=== PATIENT | female | born 1965 | race Two or more races ===

== ENCOUNTER 2024-09-17 13:53 | Emergency (ER) | payer MEDICARE, MEDICAID, SELFPAY ==
[2024-09-17 13:54] VITALS: BMI 38.7
--- NOTE | 2024-09-17 14:18 | PD.EDRME ---
Rapid Medical Screening Exam RME Arrival date/time: 09/17/24 13:53 59-year-old female dialysis patient presents emergency department complaint of nosebleed ongoing x 2 hours Chief Complaint: Epistaxis/Nasal Foreign Body
[2024-09-17 14:20] VITALS: BP 179/97; PULSE 95; RESP 20; TEMP 36.8; O2SAT 97
[2024-09-17 14:40] LABS: Basophils # (Auto) 0.1 Thou/mm3 (0.0-0.2); Basophils % (Auto) 1 % (0-2.5); Eosinophils # (Auto) 0.6 Thou/mm3 (0.0-0.5); Eosinophils % (Auto) 6 % (0-10); Hematocrit 28.5 % (36.0-46.0); Hemoglobin 9.3 g/dL (12.0-16.0); Immature Granulocytes % (Auto) 2 % (0-0); Immature Granulocytes Auto 0.13 Thou/mm3 (0.00-0.00); Lymphocytes # (Auto) 1.2 Thou/mm3 (1.0-4.8); Lymphocytes % (Auto) 14 % (10-50); Mean Corpuscular HGB Conc 32.6 g/dl (31.0-37.0); Mean Corpuscular Hemoglobin 29.2 pg (25.0-35.0); Mean Corpuscular Volume 90 fL (80-100); Monocytes # (Auto) 0.6 Thou/mm3 (0.0-0.8); Monocytes % (Auto) 6 % (0-12); Neutrophils # (Auto) 6.3 Thou/mm3 (1.8-7.7); Neutrophils % (Auto) 72 % (37-80); Nucleated Red Blood Cell # 0.05 Thou/mm3 (0.00-0.00); Nucleated Red Blood Cell % 1 /100 WBC (0); Platelet Count 285 Thou/mm3 (140-440); RDW Standard Deviation 49.8 fL (36.4-46.3); Red Blood Count 3.18 Miln/mm3 (4.00-5.20); White Blood Count 8.8 Thou/mm3 (3.6-11.0)
--- NOTE | 2024-09-17 14:47 | XR_ITS ---
Examination: CT brain head without contrast. 2-D sagittal coronal reconstructions Date and time of exam:September 17, 2024 at 1540 hours INDICATIONS: High blood pressure today with headaches and nosebleed beginning 3 hours ago COMPARISON: March 06, 2022 CTDI: vol (mGy):45.6 DLP: (mGycm):912 Technique: Multiple CT axial sections of the brain have been obtained, 5 mm slice thickness. Contrast has not been administered. 2-D sagittal, coronal reconstructions have been obtained Low dose protocols were performed. One or more of the following dose reduction techniques were used; automated exposure control, adjustment of the mA and/or KV according to patient size, use of iterative reconstruction technique. Findings: No significant ventricular enlargement. Intra-axial or extra-axial hemorrhage density is not seen Cerebellar tonsils project exclude 4 mm below the foramen magnum. No mass effect or midline shift Basal cisterns are not remarkable. Fourth ventricle is midline. Cranial vault intact. Significant maxillary sinus disease Prominent hypertrophy left inferior nasal turbinate Deviation nasal septum to the right 8 mm Impression: Negative for acute hemorrhage, mass effect or midline shift Arnold-Chiari malformation type I, recommend elective brain MRI follow-up pre and postcontrast Significant maxillary sinus disease Prominent hypertrophy left inferior nasal turbinate Prominent deviation nasal septum to the right
--- NOTE | 2024-09-17 14:53 | EDNOTE_ITS ---
ED Epistaxis RME/HPI General Chief complaint: Epistaxis/Nasal Foreign Body Stated complaint: NOSE BLEEDING ON AND OFF SINCE YESTERDAY Time Seen by Provider: 09/17/24 14:38 Arrival date/time: 09/17/24 13:53 RME / HPI RME / HPI Narrative: 09/17/24 13:53 59-year-old female dialysis patient presents emergency department complaint of nosebleed ongoing x 2 hours This section includes all my notes and documentations, including HPI, PE, and ED course.? Shine Whitley MD HPI: 59 year old female with history of hypertension, diabetes, ESRD on HD presents to the ED for evaluation of severe nose bleed beginning 3 hours prior to ar rival. Reports bleeding only from the right nostril and began spontaneously. Additionally complains of severe headache. Denies blowing her nose, trauma, or congestion. Denies use of blood thinners. No other complaints. ROS: All negative except as documented in HPI. Physical Exam: General:? Alert and oriented.??No acute distress. Severe high BP noted. Eyes:? Conjunctivae and lids clear.?? ENT:? No nasal congestion.??No active bleeding. Pharynx normal. TM normal bilaterally. Neck:? Supple.?? Heart: RRR. Lungs:? No respiratory distress.??Good air movement with no rhonchi or wheezing or rails. Skin:? Warm and dry.?? Neuro:? Alert and oriented X 3.?? I reviewed all diagnostic test results. My review of the head CT report is no acute findings, except sinusitis. Blood tests unremarkable except elevated BUN/Cr from ESRD. At this point, diagnoses include?hypertension, nose bleed, sinusitis. Treatment here included?clonidine and metoprolol and two Tylenol #3. Significant improvement noted. Increase BP meds and recommended outpatient care. Based on my best medical judgment, made decision no further evaluation or treatment indicated at this time.? Patient understands and agrees to the discharge instructions customized and printed, see below. Discharge instructions from Dr. Whitley: 1. After extensive evaluation, there is no life-threatening condition.? Such as stroke or brain tumor or heart attack. 2. Your nosebleed is due to severely high BP (sinus infection is a factor too) which ruptures tiny blood vessels. 3. Take clonidine 0.2 mg and metoprolol ER 50 mg every morning and every night. You will live longer with lower BP and slower heart rate. And Augmentin for sinus infection. And Tylenol with codeine for severe headache. 4. See a private doctor on 09/20/2024 for recheck and further care. Ask to review all test results and official radiology reports, to make sure you receive all necessary follow-ups and monitoring. Ask for help until you are completely better. 5. Seek immediate medical care with worsening or with any concerns.?? Shine Whitley MD Related Data Home Medications ?Medication ?Instructions ?Recorded ?Confirmed sodium bicarbonate 650 mg tablet 650 mg PO BID ##0 04/23/16 08/26/18 cholecalciferol (vitamin D3) 50 2,000 unit PO QDAY 03/13/18 08/26/18 mcg (2,000 unit) capsule (Vitamin D3) clonidine HCl 0.3 mg tablet 1 tab PO BID 03/13/18 08/26/18 cyanocobalamin (vitamin B-12) 1,000 mcg PO QDAY 03/13/18 08/26/18 1,000 mcg tablet (Vitamin B-12) cyclobenzaprine 10 mg tablet 10 mg PO TID PRN Muscle Pain 03/13/18 08/26/18 ferrous sulfate 325 mg (65 mg 325 mg PO TID 03/13/18 08/26/18 iron) tablet losartan 100 mg tablet 100 mg PO QDAY 03/13/18 08/26/18 pioglitazone 30 mg tablet 30 mg PO QDAY 03/13/18 08/26/18 insulin glargine 100 unit/mL (3 50 unit subcut QDAY 08/25/18 08/26/18 mL) subcutaneous pen (Basaglar KwikPen U-100 Insulin) Previous Rx's ?Medication ?Instructions ?Recorded acetaminophen 300 mg-codeine 30 mg 2 tab PO TID PRN pain #20 tabs 09/17/24 tablet amoxicillin 875 mg-potassium 1 tab PO BID #20 tabs 09/17/24 clavulanate 125 mg tablet clonidine HCl 0.2 mg tablet 0.2 mg PO BID #60 tabs 09/17/24 metoprolol succinate 50 mg 50 mg PO BID #60 tabs 09/17/24 tablet,extended release 24 hr Allergies Allergy/AdvReac Type Severity Reaction Status Date / Time simvastatin AdvReac Severe Cramping Verified 09/17/24 13:55 of the Muscles Review of Systems Review of Systems Systems Reviewed: All systems reviewed, normal except as documented Past Medical History Past Medical History NEUROLOGIC: Positive Migraine CARDIAC: Positive Cardiac Disorders and Hypertension (TAKES MED) RESPIRATORY: Positive Sleep Apnea (HAS CPAP) GENITOURINARY: Positive Genitourinary Disorders and Renal Disease (ONE KIDNEY FUNCTION BEING OBSERVE) REPRODUCTIVE: Positive Previous Pregnancies (X4) ENT: Positive Cataracts (SUDHIR) ENDOCRINE: Positive Endocrine Disorders and Diabetes Mellitus Type 2 (TAKES MEDS) OTHER HISTORY: Positive Falls (07/26 ER VISIT) Family History FAMILY HISTORY: Positive Family Psychiatric Problems (MOTHER (DEPRESSION)), Family Cardiac Disorders (MOTHER,BROTHER,SISTER (HTN)), Family Cancer (FATHER (PENILE)) and Family Surgery (MOTHER,FATHER,BROTHER,SISTER) Surgical History SURGICAL: Positive Joint Replacement, Tubal Ligation and Section (X1) Social History SMOKING STATUS: Never smoker ED Exam Narrative Physical exam: As noted in HPI Course Quality Measures none Orders Category Date Time Status CT head/brain wo con Stat Exams 09/17/24 14:47 Completed CBC Stat Lab 09/17/24 14:27 Completed Comprehensive Metabolic Panel Stat Lab 09/17/24 14:18 Completed Partial Thromboplastin Time Stat Lab 09/17/24 14:27 Completed Prothrombin Time with INR Stat Lab 09/17/24 14:27 Completed ACETAMINOPHEN w/COD 300-30 [Tylenol w/Cod #3] Med 09/17/24 16:07 Discontinued 2 tab PO X1 ONE Metoprolol Tartrate [Lopressor] Med 09/17/24 14:48 Discontinued 50 mg PO X1 ONE cloNIDine HCL [Catapres] Med 09/17/24 14:48 Discontinued 0.3 mg PO X1 ONE Vital Signs Vital signs: Vital Signs Temperature 98.3 F 09/17/24 14:20 Pulse Rate 95 09/17/24 14:20 Respiratory Rate 20 09/17/24 14:20 Blood Pressure 179/97 H 09/17/24 14:20 Pulse Oximetry (%) 97 09/17/24 14:20 Oxygen Delivery Method Room Air 09/17/24 14:20 Pulse ox is 97% on room air which is adequate. Epistaxis MDM Narrative MDM Narrative:: Rubi Hughes am scribing for and in the presence of Dr. Whitley. Patient data External records reviewed:: [facility] previous records (I reviewed ED visit on 03/06/2022) Clinical information provided by:: patient Social determinants that could affect healthcare access:: none Patient has the following chronic illnesses:: hypertension, diabetes, ESRD on HD How is presenting disease/condition affected by chronic disease/condition?: exacerbated by Evaluation data The following diagnostics were reviewed and interpreted by me:: lab results and radiology exam(s) Lab and/or radiology exams considered but not ordered:: None Interpretation Summary: Normal diagnostics Medications / Prescriptions Medications or Prescriptions considered but not ordered:: None Medication administrations:: Medication Administration History Discontinued Medications Acetaminophen/Codeine Phosphate (Acetaminophen W/Cod 300-30 Tablet) 2 tab PO X1 ONE Stop: 09/17/24 16:08 Clonidine (Clonidine Hcl 0.1 Mg Tablet) 0.3 mg PO X1 ONE Stop: 09/17/24 14:49 Last Admin: 09/17/24 15:22 Dose: 0.3 mg Documented By: OA Metoprolol Tartrate (Metoprolol Tartrate 25 Mg Tablet) 50 mg PO X1 ONE Stop: 09/17/24 14:49 Last Admin: 09/17/24 16:03 Dose: 50 mg Documented By: OA Patient given clonidine and metropolol and tylenol with codeine Consultations Consultation(s) initiated? (list below): No Diagnosis Epistaxis Differential Diagnosis: nasal bone fracture, anterior epistaxis, posterior epistaxis and other (CVA, brain tumor, severe anemia) Most likely diagnosis given after review of the tests above:: Hypertension Nose bleed Sinusitis Admission Indicated Admission indicated?: not indicated Explain why admission is indicated or not indicated:: Does not meet admission criteria Admission Request Was there a request for admission?: No Disposition Plan Disposition Plan: Discharge Discharge Attestation Discharge Attestation: The patient and all family members were given an opportunity to ask questions and understood the discharge instructions. Discharge instructions specifically effects, indications for sooner follow up or return to the emergency department, and the expected course of current diagnosis. Patient condition: Stable Discharge Plan Plan Patient Disposition: HOME (Self Care) Prescriptions/Referrals Prescriptions/Med Rec: New clonidine HCl 0.2 mg tablet 0.2 mg PO BID Qty: 60 0RF metoprolol succinate 50 mg tablet extended release 24 hr 50 mg PO BID Qty: 60 0RF acetaminophen-codeine 300-30 mg tablet 2 tab PO TID MDD 6 PRN (Reason: pain) Qty: 20 0RF amoxicillin-pot clavulanate 875-125 mg tablet 1 tab PO BID Qty: 20 0RF No Action sodium bicarbonate 650 MG tablet 650 mg PO BID Qty: 0 insulin glargine [Basaglar KwikPen U-100 Insulin] 100 unit/mL (3 mL) Insulin Pen 50 unit SUBCUT QDAY cyclobenzaprine 10 mg Tablet 10 mg PO TID PRN (Reason: Muscle Pain) clonidine HCl 0.3 mg Tablet 1 tab PO BID ferrous sulfate 325 mg (65 mg iron) Tablet 325 mg PO TID pioglitazone 30 mg Tablet 30 mg PO QDAY losartan 100 mg Tablet 100 mg PO QDAY cholecalciferol (vitamin D3) [Vitamin D3] 2,000 unit Capsule 2,000 unit PO QDAY cyanocobalamin (vitamin B-12) [Vitamin B-12] 1,000 mcg Tablet 1,000 mcg PO QDAY Referrals: Erik Gates PA-C [Primary Care Provider] - In 1 week Problem List Clinical Impression: Hypertension, Nosebleed, Sinusitis Patient/Caregiver Discharge Instructions Discharge Activity: activity as tolerated Education Materials: ED Epistaxis (Adult), ED Hypertension, Established, ED Sinusitis (Antibiotic Treatment) Additional Instructions: Discharge instructions from Dr. Whitley: 1. After extensive evaluation, there is no life-threatening condition.? Such as stroke or brain tumor or heart attack. 2. Your nosebleed is due to severely high BP (sinus infection is a factor too) which ruptures tiny blood vessels. 3. Take clonidine 0.2 mg and metoprolol ER 50 mg every morning and every night. You will live longer with lower BP and slower heart rate. And Augmentin for sinus infection. And Tylenol with codeine for severe headache. 4. See a private doctor on 09/20/2024 for recheck and further care. Ask to review all test results and official radiology reports, to make sure you receive all necessary follow-ups and monitoring. Ask for help until you are completely better. 5. Seek immediate medical care with worsening or with any concerns.?? Print Language: [place] Islander Stand Alone Forms: Mary Award Info., Patient Portal Info Letter
[2024-09-17 14:58] LABS: INR 1.2 (0.9-1.3); Prothrombin Time 12.6 Seconds (9.0-12.2)
[2024-09-17 15:21] LABS: Alanine Aminotransferase < 7 U/L (10-49); Albumin, Serum 4.2 gm/dL (3.5-5.0); Albumin/Globulin Ratio 1.3 (1.2-2.2); Alkaline Phosphatase 189 U/L (46-116); Anion Gap 12 (7-16); Aspartate Amino Transferase < 8 U/L (0-34); BUN/Creatinine Ratio 5 Ratio (12-20); Bilirubin,Total < 0.2 mg/dL (0.3-1.2); Blood Urea Nitrogen 56 mg/dL (9-23); Calcium 10.4 mg/dL (8.3-10.6); Calcium (Corrected) 10.4 mg/dL (8.5-10.1); Carbon Dioxide 28.1 mMol/L (20.0-31.0); Chloride 96 mMol/L (98-107); Creatinine (Component) 11.3 mg/dL (0.6-1.3); Estimated Creatinine Clearance 6.2 mL/min (>60); Globulin 3.2 gm/dL (2.3-3.5); Glucose 135 mg/dL (74-106); Osmolality,Calculated 289 (275-295); Potassium 4.3 mMol/L (3.4-5.1); Sodium 136 mMol/L (136-145); Total Protein 7.4 gm/dL (5.7-8.2); eGFR 4 See Note
[2024-09-17 15:22] VITALS: BP 179/97; PULSE 95
[2024-09-17] MEDS: cloNIDine HCL 0.1 MG TABLET 0.3 MG PO (15:22)
[2024-09-17 15:48] VITALS: BP 201/108; PULSE 93; RESP 18; TEMP 36.8; O2SAT 98
[2024-09-17 16:03] VITALS: BP 201/108; PULSE 93
[2024-09-17] MEDS: METOPROLOL TARTRATE 25 MG TABLET 50 MG PO (16:03)
[2024-09-17 17:17] VITALS: BP 153/89
== END 2024-09-17 17:18 | disposition home or self-care (01) ==
PROVIDERS: Nurse Practitioner Primary Care; Emergency Provider Emergency Medicine; PCP Physician Assistant
DX: J32.0 Chronic maxillary sinusitis (principal); I12.0 Hypertensive chronic kidney disease with stage 5 chronic kidney disease or end stage renal disease; E11.22 Type 2 diabetes mellitus with diabetic chronic kidney disease; N18.6 End stage renal disease; Z99.2 Dependence on renal dialysis; Z79.84 Long term (current) use of oral hypoglycemic drugs
CPT/HCPCS: 36415; 70450; 80053; 85025; 85610; 85730; 99284; A9270

== ENCOUNTER 2024-10-21 20:50 | Emergency (ER) | payer MEDICARE, MEDICAID, SELFPAY ==
[2024-10-21 20:51] VITALS: BMI 38.9
[2024-10-21 21:02] VITALS: BP 214/138; BP 234/132; PULSE 103; RESP 20; TEMP 36.9; O2SAT 93
--- NOTE | 2024-10-21 21:23 | PD.EDEPIST ---
ED Epistaxis RME/HPI General Chief complaint: Epistaxis/Nasal Foreign Body Stated complaint: NOSE BLEED X3 HOURS Time Seen by Provider: 10/21/24 21:20 Arrival date/time: 10/21/24 20:50 59F with history of HTN, ESRD, and DM presents to ED with intermittent nosebleed for several hours. Patient denies fall/trauma, dizziness, weakness, AMS, seizures and LOC. Patient is not on a blood thinner. Limitations: no limitations Related Data Home Medications ?Medication ?Instructions ?Recorded ?Confirmed sodium bicarbonate 650 mg tablet 650 mg PO BID ##0 04/23/16 08/26/18 cholecalciferol (vitamin D3) 50 2,000 unit PO QDAY 03/13/18 08/26/18 mcg (2,000 unit) capsule (Vitamin D3) clonidine HCl 0.3 mg tablet 1 tab PO BID 03/13/18 08/26/18 cyanocobalamin (vitamin B-12) 1,000 mcg PO QDAY 03/13/18 08/26/18 1,000 mcg tablet (Vitamin B-12) cyclobenzaprine 10 mg tablet 10 mg PO TID PRN Muscle Pain 03/13/18 08/26/18 ferrous sulfate 325 mg (65 mg 325 mg PO TID 03/13/18 08/26/18 iron) tablet losartan 100 mg tablet 100 mg PO QDAY 03/13/18 08/26/18 pioglitazone 30 mg tablet 30 mg PO QDAY 03/13/18 08/26/18 insulin glargine 100 unit/mL (3 50 unit subcut QDAY 08/25/18 08/26/18 mL) subcutaneous pen (Basaglar KwikPen U-100 Insulin) Previous Rx's ?Medication ?Instructions ?Recorded acetaminophen 300 mg-codeine 30 mg 2 tab PO TID PRN pain #20 tabs 09/17/24 tablet amoxicillin 875 mg-potassium 1 tab PO BID #20 tabs 09/17/24 clavulanate 125 mg tablet clonidine HCl 0.2 mg tablet 0.2 mg PO BID #60 tabs 09/17/24 metoprolol succinate 50 mg 50 mg PO BID #60 tabs 09/17/24 tablet,extended release 24 hr doxycycline hyclate 100 mg tablet 100 mg PO BID 7 days #14 tabs 10/21/24 Allergies Allergy/AdvReac Type Severity Reaction Status Date / Time simvastatin AdvReac Severe Cramping Verified 10/21/24 20:51 of the Muscles Review of Systems Review of Systems Systems Reviewed: All systems reviewed, normal except as documented Constitutional Constitutional: Reports system reviewed and no additional complaints, except as documented, Denies fever(s) and Denies headache(s) ENT Ears, Nose, Mouth, and Throat: Reports as per HPI, Denies disequilibrium, Reports epistaxis and Denies headache(s) Cardiovascular Cardiovascular: Reports system reviewed and no additional complaints, except as documented, Denies chest pain and Denies dyspnea Respiratory Respiratory: Reports system reviewed and no additional complaints, except as documented, Denies cough and Denies dyspnea Gastrointestinal Gastrointestinal: Reports system reviewed and no additional complaints, except as documented, Denies abdominal pain, Denies nausea and Denies vomiting Neurologic Neurologic: Reports system reviewed and no additional complaints, except as documented, Denies confusion, Denies disequilibrium and Denies headache(s) Psychiatric Psychiatric: Denies confusion Past Medical History Past Medical History NEUROLOGIC: Positive Migraine; Negative Neurological Disorders or Seizures CARDIAC: Positive Cardiac Disorders and Hypertension (TAKES MED); Negative Congestive Heart Failure RESPIRATORY: Positive Sleep Apnea (HAS CPAP); Negative Chronic Obstructive Pulmonary Disease (COPD), Asthma, Bronchitis, Emphysema, Pneumonia, Pulmonary Fibrosis, Cystic Fibrosis, Tuberculosis, Pulmonary Embolism or Pulmonary Edema GASTROINTESTINAL: Negative Gastrointestinal Disorders GENITOURINARY: Positive Genitourinary Disorders and Renal Disease (ONE KIDNEY FUNCTION BEING OBSERVE) REPRODUCTIVE: Positive Previous Pregnancies (X4); Negative Breast Cancer or Pelvic Inflammatory Disease MUSCULOSKELETAL: Negative Musculoskeletal Disorders ENT: Positive Cataracts (SUDHIR) ENDOCRINE: Positive Endocrine Disorders and Diabetes Mellitus Type 2 (TAKES MEDS); Negative Diabetes Mellitus Type 1 HEMATOLOGIC: Negative Blood Disorders OTHER HISTORY: Positive Falls (07/26 ER VISIT); Negative Hospitalization, Autoimmune Disease, Shingles, Blood Transfusions, Blood Transfusion Reaction, Anesthesia Reactions, Organ Transplant, Chemotherapy, Radiation Therapy, MRSA, Clostridium Difficile or Breast Cancer Family History FAMILY HISTORY: Positive Family Psychiatric Problems (MOTHER (DEPRESSION)), Family Cardiac Disorders (MOTHER,BROTHER,SISTER (HTN)), Family Cancer (FATHER (PENILE)) and Family Surgery (MOTHER,FATHER,BROTHER,SISTER); Negative Family Respiratory Disorders, Family Gastrointestinal Problems or Family Anesthesia Reaction Surgical History SURGICAL: Positive Joint Replacement, Tubal Ligation and Section (X1); Negative Abdominal Surgery, Nephrectomy, Neurologic Surgery, Brain Shunt, Mastectomy, Lumpectomy, Hysterectomy or Organ Transplant Social History SMOKING STATUS: Never smoker ED Exam General Limitations: Present no limitations General appearance: Present alert and in no apparent distress Head Head exam: Present atraumatic Eye Eye exam: Present normal appearance, PERRL and EOMI ENT ENT exam: Present normal oropharynx and mucous membranes moist Expanded ENT Exam Nasal speculum exam: Right: epistaxis Neck Neck exam: Present normal inspection, full ROM and trachea midline Chest Chest inspection: Present normal inspection and symmetric chest wall rise Respiratory Respiratory exam: Present normal lung sounds bilaterally Cardiovascular Cardiovascular exam: Present regular rate, normal rhythm and normal heart sounds Abdominal Exam Abdominal exam: Present soft and normal bowel sounds Extremities Exam Extremities exam: Present normal inspection and full ROM Back Exam Back exam: Present normal inspection and full ROM Neurological Exam Neurological exam: Present alert, oriented X3 and CN II-XII intact Psychiatric Psychiatric exam: Present normal affect and normal mood Skin Skin exam: Present warm, dry, intact and normal color Course Quality Measures none Orders Category Date Time Status Antibody Identification Stat Lab 10/21/24 21:46 Results CBC Stat Lab 10/21/24 21:46 Completed Type and Screen Stat Lab 10/21/24 21:46 Results Doxycycline [Vibramycin] Med 10/21/24 23:22 Discontinued 100 mg PO X1 ONE Silver Nitrate Applicators Med 10/21/24 21:36 Discontinued 2 appl TOP X1 ONE Silver Nitrate Applicators Med 10/21/24 22:23 Discontinued 2 appl TOP X1 ONE hydrALAZINE HCL [Apresoline] Med 10/21/24 21:21 Discontinued 25 mg PO X1 ONE Vital Signs Vital signs: Vital Signs Temperature 98.4 F 10/21/24 21:02 Pulse Rate 103 H 10/21/24 21:02 Respiratory Rate 20 10/21/24 21:02 Blood Pressure 234/132 H 10/21/24 21:02 Pulse Oximetry (%) 93 L 10/21/24 21:02 Oxygen Delivery Method Room Air 10/21/24 21:02 O2 at 93% on RA Epistaxis MDM Narrative MDM Narrative:: 59F with history of HTN, ESRD, and DM presents to ED with intermittent nosebleed for several hours. Patient denies fall/trauma, dizziness, weakness, AMS, seizures and LOC. Patient is not on a blood thinner. Physical exam reveals R epistaxis. Normal pupil response and EOM. Patient is afebrile, calm, and alert. Nosebleed likely from high BP 2/2 ESRD. HgB 8.6. Bleeding stopped with bilateral rhinorockets. Counseled to have them removed in about 3 days. Will given ABX prophylaxis given DM history and nasal manipulation. Patient data External records reviewed:: [facility] previous records Clinical information provided by:: patient Social determinants that could affect healthcare access:: none Patient has the following chronic illnesses:: HTN, ESRD, and DM How is presenting disease/condition affected by chronic disease/condition?: exacerbated by Evaluation data The following diagnostics were reviewed and interpreted by me:: other (specify) (none) Lab and/or radiology exams considered but not ordered:: not ordered Interpretation Summary: n/a Medications / Prescriptions Medications or Prescriptions considered but not ordered:: ordered Medication administrations:: Medication Administration History Discontinued Medications Doxycycline Hyclate (Doxycycline 100 Mg Tablet) 100 mg PO X1 ONE Stop: 10/21/24 23:23 Last Admin: 10/21/24 23:33 Dose: 100 mg Documented By: SUZAN Hydralazine HCl (Hydralazine Hcl 25 Mg Tablet) 25 mg PO X1 ONE Stop: 10/21/24 21:22 Last Admin: 10/21/24 21:51 Dose: 25 mg Documented By: SUZAN Silver Nitrate (Silver Nitrate 1 Appl Ea) 2 appl TOP X1 ONE Stop: 10/21/24 21:37 Last Admin: 10/21/24 21:52 Dose: 2 appl Documented By: SUZAN Silver Nitrate (Silver Nitrate 1 Appl Ea) 2 appl TOP X1 ONE Stop: 10/21/24 22:24 Last Admin: 10/21/24 23:34 Dose: 2 appl Documented By: OA above Consultations Consultation(s) initiated? (list below): No Diagnosis Epistaxis Differential Diagnosis: nasal bone fracture, anterior epistaxis and posterior epistaxis Most likely diagnosis given after review of the tests above:: epistaxis Admission Indicated Admission indicated?: not indicated Admission Request Was there a request for admission?: No Disposition Plan Disposition Plan: Discharge Discharge Attestation Discharge Attestation: The patient and all family members were given an opportunity to ask questions and understood the discharge instructions. Discharge instructions specifically effects, indications for sooner follow up or return to the emergency department, and the expected course of current diagnosis. Patient condition: Stable Discharge Plan Plan Patient Disposition: HOME (Self Care) Disposition Comment: Stable Prescriptions/Referrals Prescriptions/Med Rec: New doxycycline hyclate 100 mg tablet 100 mg PO BID 7 Days Qty: 14 0RF No Action sodium bicarbonate 650 MG tablet 650 mg PO BID Qty: 0 insulin glargine [Basaglar KwikPen U-100 Insulin] 100 unit/mL (3 mL) Insulin Pen 50 unit SUBCUT QDAY cyclobenzaprine 10 mg Tablet 10 mg PO TID PRN (Reason: Muscle Pain) clonidine HCl 0.3 mg Tablet 1 tab PO BID ferrous sulfate 325 mg (65 mg iron) Tablet 325 mg PO TID pioglitazone 30 mg Tablet 30 mg PO QDAY losartan 100 mg Tablet 100 mg PO QDAY cholecalciferol (vitamin D3) [Vitamin D3] 2,000 unit Capsule 2,000 unit PO QDAY cyanocobalamin (vitamin B-12) [Vitamin B-12] 1,000 mcg Tablet 1,000 mcg PO QDAY clonidine HCl 0.2 mg tablet 0.2 mg PO BID Qty: 60 0RF metoprolol succinate 50 mg tablet extended release 24 hr 50 mg PO BID Qty: 60 0RF acetaminophen-codeine 300-30 mg tablet 2 tab PO TID MDD 6 PRN (Reason: pain) Qty: 20 0RF amoxicillin-pot clavulanate 875-125 mg tablet 1 tab PO BID Qty: 20 0RF Referrals: Erik Gates PA-C [Primary Care Provider] - In 1 week Problem List Clinical Impression: Epistaxis Patient/Caregiver Discharge Instructions Education Materials: ED Epistaxis (Adult) Additional Instructions: Please follow-up with PCP within 24-48 hours and return immediately if symptoms worsen. Have rhino rocket removed in about 3 days. Print Language: Mongolian Stand Alone Forms: Patient Portal Info Letter LENORA/MICHAEL Supervising Physician LENORA/MICHAEL Supervising Physician: Dr. Whitley
[2024-10-21 21:51] VITALS: BP 234/132; PULSE 103
[2024-10-21] MEDS: hydrALAZINE HCL 25 MG TABLET PO (21:51)
[2024-10-21] MEDS: SILVER NITRATE 1 APPL EA 2 APPL TOP ×2 (21:52→23:34)
[2024-10-21 22:01] LABS: Basophils # (Auto) 0.1 Thou/mm3 (0.0-0.2); Basophils % (Auto) 0 % (0-2.5); Eosinophils # (Auto) 0.2 Thou/mm3 (0.0-0.5); Eosinophils % (Auto) 2 % (0-10); Hematocrit 26.6 % (36.0-46.0); Immature Granulocytes % (Auto) 1 % (0-0); Immature Granulocytes Auto 0.11 Thou/mm3 (0.00-0.00); Lymphocytes # (Auto) 0.9 Thou/mm3 (1.0-4.8); Lymphocytes % (Auto) 7 % (10-50); Mean Corpuscular HGB Conc 32.3 g/dl (31.0-37.0); Mean Corpuscular Volume 90 fL (80-100); Monocytes # (Auto) 1.1 Thou/mm3 (0.0-0.8); Monocytes % (Auto) 8 % (0-12); Neutrophils # (Auto) 10.7 Thou/mm3 (1.8-7.7); Neutrophils % (Auto) 82 % (37-80); Nucleated Red Blood Cell # 0.03 Thou/mm3 (0.00-0.00); Nucleated Red Blood Cell % 0 /100 WBC (0); Platelet Count 170 Thou/mm3 (140-440); Red Blood Count 2.97 Miln/mm3 (4.00-5.20)
[2024-10-21 22:17] LABS: Hemoglobin 8.6 g/dL (12.0-16.0)
[2024-10-21] MEDS: DOXYCYCLINE 100 MG TABLET PO (23:33)
== END 2024-10-21 23:45 | disposition home or self-care (01) ==
PROVIDERS: Physician Assistant; Emergency Provider Emergency Medicine; PCP Physician Assistant
DX: R04.0 Epistaxis (principal); I12.0 Hypertensive chronic kidney disease with stage 5 chronic kidney disease or end stage renal disease; E11.22 Type 2 diabetes mellitus with diabetic chronic kidney disease; N18.6 End stage renal disease
CPT/HCPCS: 30901; 36415; 85025; 86850; 86870; 86900; 86901; 99283; A9270

== ENCOUNTER 2024-10-24 21:48 | Emergency (ER) | payer MEDICARE, MEDICAID, SELFPAY ==
[2024-10-24 21:49] VITALS: BMI 38.9
[2024-10-24 22:43] VITALS: BP 121/70; PULSE 94; RESP 20; TEMP 36.7; O2SAT 95
--- NOTE | 2024-10-24 22:52 | PD.EDRME ---
Rapid Medical Screening Exam RME Arrival date/time: 10/24/24 21:48 59-year-old female past medical history of end-stage renal disease presents emergency department to have Rhino Rocket removed that were placed 3 days ago. Patient also reports past medical history of anemia and reports would like to get her hemoglobin checked. Chief Complaint: Epistaxis/Nasal Foreign Body Time Seen by Provider: 10/24/24 22:02 Vital signs: Vital Signs Temperature 98.0 F 10/24/24 22:43 Pulse Rate 94 10/24/24 22:43 Respiratory Rate 20 10/24/24 22:43 Blood Pressure 121/70 10/24/24 22:43 Pulse Oximetry (%) 95 10/24/24 22:43 Oxygen Delivery Method Room Air 10/24/24 22:43 Vital signs reviewed by provider: Yes
[2024-10-25 00:29] LABS: Basophils # (Auto) 0.1 Thou/mm3 (0.0-0.2); Basophils % (Auto) 1 % (0-2.5); Eosinophils # (Auto) 0.6 Thou/mm3 (0.0-0.5); Eosinophils % (Auto) 6 % (0-10); Hematocrit 24.4 % (36.0-46.0); Immature Granulocytes % (Auto) 1 % (0-0); Immature Granulocytes Auto 0.09 Thou/mm3 (0.00-0.00); Lymphocytes % (Auto) 10 % (10-50); Mean Corpuscular HGB Conc 31.6 g/dl (31.0-37.0); Mean Corpuscular Hemoglobin 28.3 pg (25.0-35.0); Mean Corpuscular Volume 90 fL (80-100); Monocytes % (Auto) 10 % (0-12); Neutrophils # (Auto) 7.2 Thou/mm3 (1.8-7.7); Neutrophils % (Auto) 73 % (37-80); Nucleated Red Blood Cell # 0.02 Thou/mm3 (0.00-0.00); Nucleated Red Blood Cell % 0 /100 WBC (0); Platelet Count 169 Thou/mm3 (140-440); RDW Standard Deviation 56.8 fL (36.4-46.3); Red Blood Count 2.72 Miln/mm3 (4.00-5.20); White Blood Count 9.9 Thou/mm3 (3.6-11.0)
[2024-10-25 00:33] LABS: Hemoglobin 7.7 g/dL (12.0-16.0)
--- NOTE | 2024-10-25 01:06 | PD.EDEPIST ---
ED Epistaxis RME/HPI General Chief complaint: Epistaxis/Nasal Foreign Body Stated complaint: NEEDS RINOROCKETS REMOVED Time Seen by Provider: 10/24/24 22:02 Source: patient Arrival date/time: 10/24/24 21:48 59-year-old female past medical history of end-stage renal disease presents emergency department to have Rhino Rocket removed that were placed 3 days ago. Patient also reports past medical history of anemia and reports would like to get her hemoglobin checked. Patient reports is currently on doxycycline antibiotic and has a couple more days left. Patient also endorses occasional cough. Patient denies any fever, chills, vomiting, or difficulty breathing. Mode of arrival: ambulatory Limitations: no limitations RME / HPI RME / HPI Narrative: 10/24/24 21:48 59-year-old female past medical history of end-stage renal disease presents emergency department to have Rhino Rocket removed that were placed 3 days ago. Patient also reports past medical history of anemia and reports would like to get her hemoglobin checked. Related Data Home Medications ?Medication ?Instructions ?Recorded ?Confirmed sodium bicarbonate 650 mg tablet 650 mg PO BID ##0 04/23/16 08/26/18 cholecalciferol (vitamin D3) 50 2,000 unit PO QDAY 03/13/18 08/26/18 mcg (2,000 unit) capsule (Vitamin D3) clonidine HCl 0.3 mg tablet 1 tab PO BID 03/13/18 08/26/18 cyanocobalamin (vitamin B-12) 1,000 mcg PO QDAY 03/13/18 08/26/18 1,000 mcg tablet (Vitamin B-12) cyclobenzaprine 10 mg tablet 10 mg PO TID PRN Muscle Pain 03/13/18 08/26/18 ferrous sulfate 325 mg (65 mg 325 mg PO TID 03/13/18 08/26/18 iron) tablet losartan 100 mg tablet 100 mg PO QDAY 03/13/18 08/26/18 pioglitazone 30 mg tablet 30 mg PO QDAY 03/13/18 08/26/18 insulin glargine 100 unit/mL (3 50 unit subcut QDAY 08/25/18 08/26/18 mL) subcutaneous pen (Basaglar KwikPen U-100 Insulin) Previous Rx's ?Medication ?Instructions ?Recorded acetaminophen 300 mg-codeine 30 mg 2 tab PO TID PRN pain #20 tabs 09/17/24 tablet amoxicillin 875 mg-potassium 1 tab PO BID #20 tabs 09/17/24 clavulanate 125 mg tablet clonidine HCl 0.2 mg tablet 0.2 mg PO BID #60 tabs 09/17/24 metoprolol succinate 50 mg 50 mg PO BID #60 tabs 09/17/24 tablet,extended release 24 hr doxycycline hyclate 100 mg tablet 100 mg PO BID 7 days #14 tabs 10/21/24 benzonatate 100 mg capsule 100 mg PO BID #10 caps 10/25/24 Allergies Allergy/AdvReac Type Severity Reaction Status Date / Time simvastatin AdvReac Severe Cramping Verified 10/24/24 21:49 of the Muscles Review of Systems Review of Systems Systems Reviewed: All systems reviewed, normal except as documented Constitutional Constitutional: Reports system reviewed and no additional complaints, except as documented, Denies body ache(s), Denies chills and Denies fever(s) Eyes Eyes: Reports system reviewed and no additional complaints, except as documented and Denies change in vision ENT Ears, Nose, Mouth, and Throat: Reports system reviewed and no additional complaints, except as documented, Denies disequilibrium, Denies dizziness, Reports epistaxis, Denies sore throat, Denies vertigo and Reports other (Rhino Rocket removal) Cardiovascular Cardiovascular: Reports system reviewed and no additional complaints, except as documented, Denies chest pain and Denies dyspnea Respiratory Respiratory: Reports system reviewed and no additional complaints, except as documented, Denies chest congestion, Reports cough and Denies dyspnea Gastrointestinal Gastrointestinal: Reports system reviewed and no additional complaints, except as documented, Denies abdominal pain, Denies nausea and Denies vomiting Musculoskeletal Musculoskeletal: Reports system reviewed and no additional complaints, except as documented, Denies abnormal gait and Denies arthralgias Integumentary/Breasts Skin/Breast: Reports system reviewed and no additional complaints, except as documented, Denies erythema, Denies rash and Denies wounds Neurologic Neurologic: Reports system reviewed and no additional complaints, except as documented, Denies abnormal gait, Denies disequilibrium, Denies dizziness and Denies vertigo Past Medical History Past Medical History NEUROLOGIC: Positive Migraine; Negative Neurological Disorders or Seizures CARDIAC: Positive Cardiac Disorders and Hypertension (TAKES MED); Negative Congestive Heart Failure RESPIRATORY: Positive Sleep Apnea (HAS CPAP); Negative Chronic Obstructive Pulmonary Disease (COPD), Asthma, Bronchitis, Emphysema, Pneumonia, Pulmonary Fibrosis, Cystic Fibrosis, Tuberculosis, Pulmonary Embolism or Pulmonary Edema GASTROINTESTINAL: Negative Gastrointestinal Disorders GENITOURINARY: Positive Genitourinary Disorders and Renal Disease (ONE KIDNEY FUNCTION BEING OBSERVE) REPRODUCTIVE: Positive Previous Pregnancies (X4); Negative Breast Cancer or Pelvic Inflammatory Disease MUSCULOSKELETAL: Negative Musculoskeletal Disorders ENT: Positive Cataracts (SUDHIR) ENDOCRINE: Positive Endocrine Disorders and Diabetes Mellitus Type 2 (TAKES MEDS); Negative Diabetes Mellitus Type 1 HEMATOLOGIC: Negative Blood Disorders OTHER HISTORY: Positive Falls (07/26 ER VISIT); Negative Hospitalization, Autoimmune Disease, Shingles, Blood Transfusions, Blood Transfusion Reaction, Anesthesia Reactions, Organ Transplant, Chemotherapy, Radiation Therapy, MRSA, Clostridium Difficile or Breast Cancer Family History FAMILY HISTORY: Positive Family Psychiatric Problems (MOTHER (DEPRESSION)), Family Cardiac Disorders (MOTHER,BROTHER,SISTER (HTN)), Family Cancer (FATHER (PENILE)) and Family Surgery (MOTHER,FATHER,BROTHER,SISTER); Negative Family Respiratory Disorders, Family Gastrointestinal Problems or Family Anesthesia Reaction Surgical History SURGICAL: Positive Joint Replacement, Tubal Ligation and Section (X1); Negative Abdominal Surgery, Nephrectomy, Neurologic Surgery, Brain Shunt, Mastectomy, Lumpectomy, Hysterectomy or Organ Transplant Social History SMOKING STATUS: Never smoker ED Exam General Limitations: Present no limitations General appearance: Present alert and in no apparent distress Head Head exam: Present atraumatic Eye Eye exam: Present normal appearance, PERRL and EOMI ENT ENT exam: Present normal exam, normal oropharynx and mucous membranes moist Expanded ENT Exam Nose exam: Absent nasal deviation, septal hematoma, laceration or abrasion Nasal speculum exam: Bilateral: epistaxis (Bilateral Rhino Rocket is removed no active bleeding) Neck Neck exam: Present normal inspection, full ROM and trachea midline Chest Chest inspection: Present normal inspection and symmetric chest wall rise Respiratory Respiratory exam: Present normal lung sounds bilaterally; Absent respiratory distress, wheezes or accessory muscle use Cardiovascular Cardiovascular exam: Present regular rate, normal rhythm and normal heart sounds Abdominal Exam Abdominal exam: Present soft and normal bowel sounds Extremities Exam Extremities exam: Present normal inspection and full ROM Back Exam Back exam: Present normal inspection and full ROM Neurological Exam Neurological exam: Present alert, oriented X3 and CN II-XII intact Psychiatric Psychiatric exam: Present normal affect and normal mood Skin Skin exam: Present warm, dry, intact and normal color Course Quality Measures none Orders Category Date Time Status CBC Stat Lab 10/24/24 23:21 Completed Vital Signs Vital signs: Vital Signs Temperature 98.0 F 10/24/24 22:43 Pulse Rate 94 10/24/24 22:43 Respiratory Rate 20 10/24/24 22:43 Blood Pressure 121/70 10/24/24 22:43 Pulse Oximetry (%) 95 10/24/24 22:43 Oxygen Delivery Method Room Air 10/24/24 22:43 95% room air within normal limits Epistaxis MDM Narrative MDM Narrative:: 59-year-old female past medical history of end-stage renal disease presents emergency department to have Rhino Rocket removed that were placed 3 days ago. Patient also reports past medical history of anemia and reports would like to get her hemoglobin checked. Patient reports is currently on doxycycline antibiotic and has a couple more days left. Patient also endorses occasional cough. Patient denies any fever, chills, vomiting, or difficulty breathing. No adventitious lung sounds on auscultation. Patient not appear to be in any respiratory distress. Bilateral Rhino Rocket's were successfully removed with no active bleeding. Patient tolerated well. CBC hemoglobin 7.7 with no leukocytosis. Instructed patient to complete antibiotics as prescribed. Instructed patient to have close follow-up primary care provider and specialist physicians. Patient data External records reviewed:: [facility] previous records Clinical information provided by:: patient Social determinants that could affect healthcare access:: none Patient has the following chronic illnesses:: See chart How is presenting disease/condition affected by chronic disease/condition?: uneffected by Evaluation data The following diagnostics were reviewed and interpreted by me:: lab results Lab and/or radiology exams considered but not ordered:: Ordered Interpretation Summary: Interpreted by me Medications / Prescriptions Medications or Prescriptions considered but not ordered:: N/A Medication administrations:: N/A Consultations Consultation(s) initiated? (list below): No Diagnosis Epistaxis Differential Diagnosis: nasal bone fracture, anterior epistaxis and posterior epistaxis Most likely diagnosis given after review of the tests above:: Epistaxis Admission Indicated Admission indicated?: not indicated Admission Request Was there a request for admission?: No Disposition Plan Disposition Plan: Discharge Discharge Attestation Discharge Attestation: The patient and all family members were given an opportunity to ask questions and understood the discharge instructions. Discharge instructions specifically effects, indications for sooner follow up or return to the emergency department, and the expected course of current diagnosis. Patient condition: Stable Discharge Plan Plan Patient Disposition: HOME (Self Care) Prescriptions/Referrals Prescriptions/Med Rec: New benzonatate 100 mg capsule 100 mg PO BID Qty: 10 0RF No Action sodium bicarbonate 650 MG tablet 650 mg PO BID Qty: 0 insulin glargine [Basaglar KwikPen U-100 Insulin] 100 unit/mL (3 mL) Insulin Pen 50 unit SUBCUT QDAY cyclobenzaprine 10 mg Tablet 10 mg PO TID PRN (Reason: Muscle Pain) clonidine HCl 0.3 mg Tablet 1 tab PO BID ferrous sulfate 325 mg (65 mg iron) Tablet 325 mg PO TID pioglitazone 30 mg Tablet 30 mg PO QDAY losartan 100 mg Tablet 100 mg PO QDAY cholecalciferol (vitamin D3) [Vitamin D3] 2,000 unit Capsule 2,000 unit PO QDAY cyanocobalamin (vitamin B-12) [Vitamin B-12] 1,000 mcg Tablet 1,000 mcg PO QDAY clonidine HCl 0.2 mg tablet 0.2 mg PO BID Qty: 60 0RF metoprolol succinate 50 mg tablet extended release 24 hr 50 mg PO BID Qty: 60 0RF acetaminophen-codeine 300-30 mg tablet 2 tab PO TID MDD 6 PRN (Reason: pain) Qty: 20 0RF amoxicillin-pot clavulanate 875-125 mg tablet 1 tab PO BID Qty: 20 0RF doxycycline hyclate 100 mg tablet 100 mg PO BID 7 Days Qty: 14 0RF Referrals: No Primary/Family,Physician [Primary Care Provider] - In 1 week Problem List Clinical Impression: Epistaxis Patient/Caregiver Discharge Instructions Discharge Activity: activity as tolerated Education Materials: ED Epistaxis (Adult) Additional Instructions: Continue and complete your antibiotics as previously prescribed. Close follow-up with primary care provider and specialist physicians as discussed. Return to emergency department for any worsening symptoms or as needed. Print Language: Azeri Stand Alone Forms: Mary Award Info., Patient Portal Info Letter PA/POWER BRAKE REBUILDER Supervising Physician PA/POWER BRAKE REBUILDER Supervising Physician: Dr. Huber
[2024-10-25] MEDS: BENZONATATE 100 MG CAPSULE PO (01:53)
== END 2024-10-25 01:59 | disposition home or self-care (01) ==
PROVIDERS: Emergency Provider Emergency Medicine
DX: R04.0 Epistaxis (principal); N18.6 End stage renal disease
CPT/HCPCS: 36415; 85025; 99283; A9270

== ENCOUNTER 2024-12-23 12:10 | Emergency (ER) | payer MEDICARE, MEDICAID, SELFPAY ==
[2024-12-23 12:11] VITALS: BMI 39.1
[2024-12-23 12:51] VITALS: BP 144/82; PULSE 98; RESP 18; TEMP 36.9; O2SAT 99
--- NOTE | 2024-12-23 13:56 | XR_ITS ---
Examination: Duplex scan of the lower extremity, unilateral left Date and time of exam: December 23, 2024 1439 hours INDICATIONS: Left leg pain beginning one week ago Technique: Duplex scan of the extremity veins using B-mode/grayscale imaging and Doppler spectral analysis and color flow Attention is directed to internal echogenicity, compression and augmentation involving these veins, color flow assessment, spectral analysis Findings: Major deep venous structures in the extremity demonstrate normal course and caliber. There is no evidence of deep vein thrombosis. Normal color flow and spectral analysis 8.2 cm popliteal cyst Impression: Negative for DVT..
--- NOTE | 2024-12-23 13:56 | XR_ITS ---
Examination: Knee, left , 3 views Technique: Knee AP, lateral, oblique 3 views Date and time of exam: December 23, 2024 1525 hours INDICATIONS: Patient fell last month with injury to the knee, knee pain. FINDINGS: Mild to moderate tricompartment osteoarthritis. Moderate knee effusion. No acute fracture IMPRESSION: No acute fracture
--- NOTE | 2024-12-23 13:57 | PD.EDRME ---
Rapid Medical Screening Exam E Arrival date/time: 12/23/24 12:10 59-year-old female presents emergency department with complaints of lower knee pain lower leg pain x 2 days. History of end-stage renal failure on peritoneal dialysis. I have greeted and performed a focused initial assessment of this patient. Initial appropriate labs ordered at this time. A comprehensive ED assessment and evaluation of the patient and analysis of all test and completion of medical decision making process will be conducted by additional ED provider. Chief Complaint: Extremity Problem,Nontraumatic Time Seen by Provider: 12/23/24 12:49 Vital signs: Vital Signs Temperature 98.4 F 12/23/24 12:51 Pulse Rate 98 12/23/24 12:51 Respiratory Rate 18 12/23/24 12:51 Blood Pressure 144/82 H 12/23/24 12:51 Pulse Oximetry (%) 99 12/23/24 12:51 Oxygen Delivery Method Room Air 12/23/24 12:51
[2024-12-23] MEDS: HYDROcodone/APAP 5/325 TABLET 1 TAB PO ×2 (14:31→19:53)
[2024-12-23 14:42] LABS: Basophils # (Auto) 0.1 Thou/mm3 (0.0-0.2); Basophils % (Auto) 1 % (0-2.5); Eosinophils # (Auto) 0.2 Thou/mm3 (0.0-0.5); Eosinophils % (Auto) 2 % (0-10); Hematocrit 24.3 % (36.0-46.0); Immature Granulocytes % (Auto) 1 % (0-0); Lymphocytes # (Auto) 1.2 Thou/mm3 (1.0-4.8); Lymphocytes % (Auto) 10 % (10-50); Mean Corpuscular HGB Conc 31.3 g/dl (31.0-37.0); Mean Corpuscular Hemoglobin 27.8 pg (25.0-35.0); Mean Corpuscular Volume 89 fL (80-100); Monocytes # (Auto) 1.1 Thou/mm3 (0.0-0.8); Monocytes % (Auto) 9 % (0-12); Neutrophils # (Auto) 9.6 Thou/mm3 (1.8-7.7); Neutrophils % (Auto) 78 % (37-80); Nucleated Red Blood Cell % 0 /100 WBC (0); Platelet Count 166 Thou/mm3 (140-440); RDW Standard Deviation 55.4 fL (36.4-46.3); Red Blood Count 2.73 Miln/mm3 (4.00-5.20); White Blood Count 12.2 Thou/mm3 (3.6-11.0)
[2024-12-23 14:48] LABS: INR 1.2 (0.9-1.3); Prothrombin Time 12.8 Seconds (9.0-12.2)
[2024-12-23 14:55] LABS: Hemoglobin 7.6 g/dL (12.0-16.0)
[2024-12-23 15:08] LABS: Alanine Aminotransferase < 7 U/L (10-49); Albumin/Globulin Ratio 1.3 (1.2-2.2); Alkaline Phosphatase 196 U/L (46-116); Anion Gap 12 (7-16); Aspartate Amino Transferase < 8 U/L (0-34); BUN/Creatinine Ratio 4 Ratio (12-20); Bilirubin,Total 0.2 mg/dL (0.3-1.2); Blood Urea Nitrogen 56 mg/dL (9-23); C-Reactive Protein 9.4 mg/dL (0.0-0.9); Calcium 10.4 mg/dL (8.3-10.6); Calcium (Corrected) 10.4 mg/dL (8.5-10.1); Carbon Dioxide 29.3 mMol/L (20.0-31.0); Chloride 94 mMol/L (98-107); Estimated Creatinine Clearance 5.3 mL/min (>60); Globulin 3.1 gm/dL (2.3-3.5); Glucose 166 mg/dL (74-106); Osmolality,Calculated 289 (275-295); Potassium 4.2 mMol/L (3.4-5.1); Sodium 135 mMol/L (136-145); Total Protein 7.1 gm/dL (5.7-8.2); eGFR 3 See Note
[2024-12-23 15:48] LABS: Creatinine (Component) 13.3 mg/dL (0.6-1.3)
[2024-12-23 16:55] LABS: Sed Rate (ESR) 70 mm/hr (0-30)
[2024-12-23 18:17] VITALS: BP 124/91; PULSE 101; RESP 18; TEMP 36.7; O2SAT 99
--- NOTE | 2024-12-23 19:00 | PD.EDEXREM ---
ED Extremity Problem RME/HPI General Chief complaint: Extremity Problem,Nontraumatic Stated complaint: L KNEE PAIN X4 DAYS; POSSIBLE GI BLEED Time Seen by Provider: 12/23/24 12:49 Arrival date/time: 12/23/24 12:10 RME / HPI RME / HPI Narrative: 59-year-old female patient with significant history of end-stage renal disease, currently treated for GI bleed, came in for evaluation regarding left knee pain for 2 days. Patient pain is described as dull ache, severity moderate. Patient denies any fever denies any redness denies any other complaints. Patient also denies any trauma or fall. Was taking Tylenol with no relief. Patient ambulatory with cane. Related Data Home Medications ?Medication ?Instructions ?Recorded ?Confirmed sodium bicarbonate 650 mg tablet 650 mg PO BID ##0 04/23/16 08/26/18 cholecalciferol (vitamin D3) 50 2,000 unit PO QDAY 03/13/18 08/26/18 mcg (2,000 unit) capsule (Vitamin D3) clonidine HCl 0.3 mg tablet 1 tab PO BID 03/13/18 08/26/18 cyanocobalamin (vitamin B-12) 1,000 mcg PO QDAY 03/13/18 08/26/18 1,000 mcg tablet (Vitamin B-12) cyclobenzaprine 10 mg tablet 10 mg PO TID PRN Muscle Pain 03/13/18 08/26/18 ferrous sulfate 325 mg (65 mg 325 mg PO TID 03/13/18 08/26/18 iron) tablet losartan 100 mg tablet 100 mg PO QDAY 03/13/18 08/26/18 pioglitazone 30 mg tablet 30 mg PO QDAY 03/13/18 08/26/18 insulin glargine 100 unit/mL (3 50 unit subcut QDAY 08/25/18 08/26/18 mL) subcutaneous pen (Basaglar KwikPen U-100 Insulin) Previous Rx's ?Medication ?Instructions ?Recorded amoxicillin 875 mg-potassium 1 tab PO BID #20 tabs 09/17/24 clavulanate 125 mg tablet clonidine HCl 0.2 mg tablet 0.2 mg PO BID #60 tabs 09/17/24 metoprolol succinate 50 mg 50 mg PO BID #60 tabs 09/17/24 tablet,extended release 24 hr benzonatate 100 mg capsule 100 mg PO BID #10 caps 10/25/24 acetaminophen 300 mg-codeine 30 mg 1 tab PO Q6H PRN pain #20 tabs 12/23/24 tablet acetaminophen 300 mg-codeine 30 mg 1 tab PO Q6H PRN pain #20 tabs 12/23/24 tablet Allergies Allergy/AdvReac Type Severity Reaction Status Date / Time simvastatin AdvReac Severe Cramping Verified 12/23/24 12:17 of the Muscles Review of Systems Review of Systems Narrative Review of Systems: Review of system reviewed and within normal limits except mentioned in HPI ED Exam Narrative Physical exam: VITAL SIGNS: Reviewed. GENERAL APPEARANCE: Alert and interactive, follows commands, no acute distress, HEAD AND FACE: Non-traumatic. ENT: PERRL, pink conjunctivitis, eyelid no trauma, Mucous membrane moist. NECK: Supple, nontender, no nuchal rigidity. CHEST: No tenderness, no crepitus, no paradoxical movement, no retractions. LUNGS: Clear, well ventilated, symmetric, no rales, no wheezing, no ronchi, no stridor, good breath sounds bilaterally. HEART: Regular rate, regular rhythm, no murmur, no gallops. ABDOMEN: Soft, positive bowel sounds, nondistended, no guarding, nontender, no rebound, no masses, RECTAL: Deferred. GENITAL: Deferred. NEUROLOGICAL: Gross motor function intact sensory function intact, Appropriate for age. MUSCULOSKELETAL: low back nontender, full range of motion. EXTREMITIES: Left knee tenderness no redness mild swelling nonfluctuant, full range of motion. SKIN: Color pink, dry, no rash, no lacerations, no abrasions, no contusions. LYMPHATICS: Deferred. Course Quality Measures none Orders Category Date Time Status US venous duplex LE LT Stat Exams 12/23/24 13:56 Completed XR knee LT 3V Stat Exams 12/23/24 13:56 Completed CBC Stat Lab 12/23/24 14:10 Completed CMP [Comprehensive Metabolic Panel] Stat Lab 12/23/24 14:10 Completed CRP [C-Reactive Protein] Stat Lab 12/23/24 14:10 Completed PT [Prothrombin Time with INR] Stat Lab 12/23/24 14:10 Completed Sed Rate (ESR) Stat Lab 12/23/24 14:10 Completed HYDROcodone*/APAP 5/325 [[place] 5/325] Med 12/23/24 13:56 Discontinued 1 tab PO X1 ONE HYDROcodone*/APAP 5/325 [[place] 5/325] Med 12/23/24 19:19 Discontinued 1 tab PO X1 ONE Vital Signs Vital signs: Vital Signs Temperature 98.4 F 12/23/24 12:51 Pulse Rate 98 12/23/24 12:51 Respiratory Rate 18 12/23/24 12:51 Blood Pressure 144/82 H 12/23/24 12:51 Pulse Oximetry (%) 99 12/23/24 12:51 Oxygen Delivery Method Room Air 12/23/24 12:51 Extremity Problem MDM Narrative MDM Narrative:: 59-year-old female patient with significant history of end-stage renal disease, currently treated for GI bleed, came in for evaluation regarding left knee pain for 2 days. Patient pain is described as dull ache, severity moderate. Patient denies any fever denies any redness denies any other complaints. Patient also denies any trauma or fall. Was taking Tylenol with no relief. Patient ambulatory with cane. Laboratory workup is significant for slight leukocytosis, CRP and ESR slightly elevated. Clinically I did not suspect any septic knee, because patient is able to bend and extend the knee with minimal pain only. There is no redness to the knee joints. No fever noted also. Patient was advised to return to emergency room for worsening of pain, fever, redness or inability to ambulate due to worsening pain. Patient agrees with plan Patient data External records reviewed:: None Clinical information provided by:: patient and family Social determinants that could affect healthcare access:: none Patient has the following chronic illnesses:: ESRD on peritoneal dialysis every day How is presenting disease/condition affected by chronic disease/condition?: exacerbated by Evaluation data The following diagnostics were reviewed and interpreted by me:: lab results and radiology exam(s) Lab and/or radiology exams considered but not ordered:: None Interpretation Summary: See results in MDM Medications / Prescriptions Medications or Prescriptions considered but not ordered:: None Medication administrations:: Medication Administration History Discontinued Medications Hydrocodone Bitart/Acetaminophen (Hydrocodone/Apap 5/325 Tablet) 1 tab PO X1 ONE Stop: 12/23/24 13:57 Last Admin: 12/23/24 14:31 Dose: 1 tab Documented By: GM Hydrocodone Bitart/Acetaminophen (Hydrocodone/Apap 5/325 Tablet) 1 tab PO X1 ONE Stop: 12/23/24 19:20 Last Admin: 12/23/24 19:53 Dose: 1 tab Documented By: VEL Contreras Consultations Consultation(s) initiated? (list below): No Diagnosis Extremity Problem Differential Diagnosis: gout, deep vein thrombosis of lower extremity and other (Knee pain, knee effusion) Most likely diagnosis given after review of the tests above:: Knee pain, knee effusion Admission Indicated Admission indicated?: not indicated Admission Request Was there a request for admission?: No Disposition Plan Disposition Plan: Discharge Discharge Attestation Discharge Attestation: The patient and all family members were given an opportunity to ask questions and understood the discharge instructions. Discharge instructions specifically effects, indications for sooner follow up or return to the emergency department, and the expected course of current diagnosis. Patient condition: Stable Discharge Plan Plan Patient Disposition: HOME (Self Care) Disposition Comment: Stable Prescriptions/Referrals Prescriptions/Med Rec: New acetaminophen-codeine 300-30 mg tablet 1 tab PO Q6H PRN (Reason: pain) Qty: 20 0RF acetaminophen-codeine 300-30 mg tablet 1 tab PO Q6H PRN (Reason: pain) Qty: 20 0RF Discontinued acetaminophen-codeine 300-30 mg tablet 2 tab PO TID MDD 6 PRN (Reason: pain) Qty: 20 0RF No Action sodium bicarbonate 650 MG tablet 650 mg PO BID Qty: 0 insulin glargine [Basaglar KwikPen U-100 Insulin] 100 unit/mL (3 mL) Insulin Pen 50 unit SUBCUT QDAY cyclobenzaprine 10 mg Tablet 10 mg PO TID PRN (Reason: Muscle Pain) clonidine HCl 0.3 mg Tablet 1 tab PO BID ferrous sulfate 325 mg (65 mg iron) Tablet 325 mg PO TID pioglitazone 30 mg Tablet 30 mg PO QDAY losartan 100 mg Tablet 100 mg PO QDAY cholecalciferol (vitamin D3) [Vitamin D3] 2,000 unit Capsule 2,000 unit PO QDAY cyanocobalamin (vitamin B-12) [Vitamin B-12] 1,000 mcg Tablet 1,000 mcg PO QDAY clonidine HCl 0.2 mg tablet 0.2 mg PO BID Qty: 60 0RF metoprolol succinate 50 mg tablet extended release 24 hr 50 mg PO BID Qty: 60 0RF amoxicillin-pot clavulanate 875-125 mg tablet 1 tab PO BID Qty: 20 0RF benzonatate 100 mg capsule 100 mg PO BID Qty: 10 0RF Referrals: Lincoln Godoy MD [Primary Care Provider] - In 1 week Problem List Clinical Impression: Acute knee pain, Effusion of knee Patient/Caregiver Discharge Instructions Discharge Activity: activity as tolerated Education Materials: ED Knee Effusion Additional Instructions: Thank you for the opportunity for serving you today. You are stable for discharged . You are advised to: Follow-up with your PCP in 1 to 2 days Return to ED for worsening of symptoms, redness to the knee, worsening pain, fever, Increase oral fluids Take medication as prescribed Print Language: Uzbek Stand Alone Forms: Mary Award Info., Patient Portal Info Letter PA/ROLL SCALE MAN Supervising Physician PA/ROLL SCALE MAN Supervising Physician: MD Angi
[2024-12-23 19:52] VITALS: BP 161/91; PULSE 93; RESP 16; TEMP 36.8; O2SAT 98
== END 2024-12-23 21:00 | disposition home or self-care (01) ==
PROVIDERS: Nurse Practitioner Primary Care; Emergency Provider Emergency Medicine; PCP Family Medicine
DX: M25.462 Effusion, left knee (principal); M79.662 Pain in left lower leg; D72.829 Elevated white blood cell count, unspecified
CPT/HCPCS: 36415; 73562; 80053; 85025; 85610; 85652; 86140; 93971; 99284; A9270